=== PATIENT | male | born 2000 | race Asian ===

== ENCOUNTER 2024-04-08 21:13 | Emergency (ER) | payer OTHER, SELFPAY ==
[2024-04-08 21:16] VITALS: BP 153/94; PULSE 76; RESP 18; TEMP 37.1; O2SAT 98; BMI 29.0
[2024-04-08 23:57] VITALS: BP 139/89; PULSE 76; O2SAT 97
[2024-04-09] VITALS: PULSE 81; O2SAT 96
[2024-04-09 00:30] VITALS: PULSE 70; RESP 14; O2SAT 97
--- NOTE | 2024-04-09 00:51 | ED.BACK ---
HPI - Back Pain/Injury General Chief Complaint: Back Pain/Injury Stated Complaint: fall, back px Time Seen by Provider: 04/09/24 00:45 Source: patient History of Present Illness HPI Narrative: Patient is a 23-year-old male history of hypertension presenting to back pain. 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 He says it hurts when he lifts and moves forward. No numbness or tingling down his legs or arms. Not wanting anything for pain at this time Patient History Social History Smoking Status: Never smoker Smoking Status: Never smoker Exam Initial Vital Signs Initial Vital Signs: Vital Signs Temperature 98.7 F 04/08/24 21:16 Pulse Rate 76 04/08/24 21:16 Respiratory Rate 18 04/08/24 21:16 Blood Pressure 153/94 H 04/08/24 21:16 Pulse Oximetry 98 04/08/24 21:16 Oxygen Delivery Method Room Air 04/08/24 21:16 GENERAL: Well-appearing, well-nourished and in no acute distress. CARDIOVASCULAR: peripheral pulses in tact, cap refill <2 sec RESPIRATORY: No respiratory distress, speaks in full sentences without difficulty BACK: No vertebral tenderness no step-off EXTREMITIES: Normal range of motion, no clubbing or edema. Neurovascularly intact NEUROLOGICAL: Cranial nerves II through XII grossly intact. Normal gait and speech. SKIN: Warm, dry, no petechiae, no rashes or lesions. 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 No head injury no neck pain no numbness tingling weakness. No evidence of cauda equina. Not wanting anything for pain. Discharge Plan Departure Patient Disposition: Home Clinical Impression: Strain of lumbar region Instructions: DI for Back Strain or Sprain Activity Restrictions/Additional Instructions: *You have been diagnosed with back pain *What to do: Increase activity as tolerated. *Continue to take medications as directed Tylenol Motrin as needed for pain *Follow up with your primary care provider in 2-3 days or call [phone] *Return to ER if you should have increasing pain weakness loss of urine or any new, worsening or concerning symptoms Stand Alone Forms: Patient Portal/API/Survey, Work Release Note
[2024-04-09 01:00] VITALS: BP 134/84; PULSE 76; RESP 16; O2SAT 97
== END 2024-04-09 01:05 | disposition home or self-care (01) ==
PROVIDERS: Emergency Provider Emergency Medicine
DX: S39.012A Strain of muscle, fascia and tendon of lower back, initial encounter (principal); W01.0XXA Fall on same level from slipping, tripping and stumbling without subsequent striking against object, initial encounter; Y93.F2 Activity, caregiving, lifting; Y99.0 Civilian activity done for income or pay
CPT/HCPCS: 99281